=== PATIENT | female | born 1990 | race Caucasian/White ===

== ENCOUNTER 2022-12-12 12:21 | Emergency (ER) | payer OTHER ==
[2022-12-12] MEDS ORDERED: Sodium Chloride 0.9% 10 ML Syringe FLUSH PRN (13:02)
[2022-12-12] MEDS ORDERED: fentaNYL 100 MCG/2 ML SDV IVPUSH ONE (13:03)
[2022-12-12] MEDS ORDERED: Sodium Chloride 0.9% 75 ML IV SCH (13:15)
[2022-12-12] MEDS ORDERED: Sodium Chloride 0.9% 1,000 ML IV SCH (13:15)
[2022-12-12] MEDS ORDERED: Iopamidol 612 MG/ML 100 ML Bottle IV SCH (13:15)
== END 2022-12-12 17:01 | disposition home or self-care (01) ==
LOC: JP.ED 12:21
DX: S20.219A Contusion of unspecified front wall of thorax, initial encounter (principal); V49.9XXA Car occupant (driver) (passenger) injured in unspecified traffic accident, initial encounter; Y92.410 Unspecified street and highway as the place of occurrence of the external cause
CPT/HCPCS: 70450; 71260; 72125; 76377; 96361; 96374; 99284; J3010; J3490; J7030; Q9967